=== PATIENT | female | born 1945 | race Caucasian/White ===

== ENCOUNTER → 2022-12-20 10:14 | Outpatient (BNVA) | payer MEDICARE, OTHER, SELFPAY | PROVIDERS: PCP Physician Assistant Medical; Visit Provider Hospitalist | DX: R91.8 Other nonspecific abnormal finding of lung field (principal); R06.00 Dyspnea, unspecified | CPT/HCPCS: 99202 ==

== ENCOUNTER 2024-07-17 08:54 | Outpatient (REF) | payer MEDICARE, OTHER, SELFPAY | END 2024-07-17 08:55 | disposition home or self-care (01) | LOC: HO.XRAY 08:54 | PROVIDERS: PCP Physician Assistant Medical; Visit Provider Hospitalist | DX: R91.8 Other nonspecific abnormal finding of lung field (principal) | CPT/HCPCS: 71250 ==